=== PATIENT | male | born 1965 | race Caucasian/White ===

== ENCOUNTER 2017-03-14 23:39 | Emergency (ER) | payer MEDICARE ==
[2017-03-15] MEDS ORDERED: Amoxicillin/Potassium Clav 875 MG TAB ONE (00:18)
== END 2017-03-15 00:22 | disposition home or self-care (01) ==
LOC: SCSER 23:39
DX: S01.511A Laceration without foreign body of lip, initial encounter (principal); I10 Essential (primary) hypertension; F43.10 Post-traumatic stress disorder, unspecified; W54.0XXA Bitten by dog, initial encounter
CPT/HCPCS: 12011

== ENCOUNTER 2017-08-15 06:49 | Day surgery (SDC) | payer MEDICARE ==
[2017-08-14 10:36] VITALS: BMI 38.3
[2017-08-15 07:48] VITALS: BP 127/94; TEMP 98.6
--- NOTE | 2017-08-15 10:26 | RAD ---
LUMBAR MYELOGRAM: THORACIC MYELOGRAM: HISTORY: Lumbar stenosis. Degenerative disk disease. Radiculopathy. COMPARISON: None. EXPOSURE: 1.3 minutes 1256.4 mGy per m2 FINDINGS: Initial floor grinder thoracic and lumbar spine radiographs demonstrate a dorsal column stimulator at the lev el of the distal thoracic spine. There is cervical fusion hardware in the lower cervical spine, at t he C5, C6, and C7 levels. Vertebral body heights are maintained. No fracture. Osteophyte formation is noted. There is lumbar fusion change at L5-S1 with anterior and posterior fusion hardware. Successful lumbar puncture for intrathecal contrast administration. A total of 8 mL of Isovue-M 200 was administered intrathecally. The patient tolerated the procedure well. No major post procedure c omplications. IMPRESSION: Successful lumbar puncture for intrathecal contrast administration. Please refer to post myelogram C T for further details. POS: [facility]
--- NOTE | 2017-08-15 11:20 | CT ---
POST MYELOGRAM THORACIC SPINE CT: HISTORY: Degenerative disk disease. Stenosis. COMPARISON: None. TECHNIQUE: Thoracic spine CT is performed after myelogram. Sagittal and coronal reformatted images are submitte d for interpretation. FINDINGS: There are linear opacities and consolidation involving the left lower lobe with elevation of the left hemidiaphragm. Left lower lobe atelectasis is favored. Continue surveillance is recommended. No s ignificant pleural fluid. Limited evaluation of the mediastinum. No mass, lymphadenopathy, or hematoma. Heart size is within normal limits. No pericardial effusion. Visualized aorta has a normal caliber. No periaortic fat s tranding. Hypodensities in the left and right renal cortex are compatible with bilateral cortical cysts. No ev idence of obstructive uropathy. There is a dorsal column stimulator terminating at the T7-T8 disk space. Associated metallic suscept ibility artifact. Limited evaluation of the distal cervical spine and upper thoracic spine due to decreased contrast. T1-T2: No high-grade central canal stenosis. T2-T3: No high-grade central canal stenosis. T3-T4: No high-grade central canal stenosis. There is mild stenosis secondary to a right-sided oste ophyte. There is mild deformity of the right cord. T4-T5: No high-grade central canal stenosis. T5-T6: No high-grade central canal stenosis. Minimal left and right paracentral osteophyte complexe s without significant stenosis. T6-T7: No significant central canal stenosis or foraminal narrowing. T7-T8, T8-T9, T9-T10 are limited in evaluation due to beam-attenuation artifact. There may be mild s tenosis at T9-T10. T10-T11, T11-T12: No significant central canal stenosis. IMPRESSION: Degenerative changes of the thoracic spine as above. No high-grade central canal stenosis. No high- grade foraminal narrowing. POS: [facility]
--- NOTE | 2017-08-15 11:32 | CT ---
POST MYELOGRAM LUMBAR SPINE CT: HISTORY: Lumbar radiculopathy. Spinal stenosis. COMPARISON: 11/03/2009 TECHNIQUE: Post myelogram lumbar spine CT is performed in the axial plane. Reformatted images are submitted for interpretation. FINDINGS: No retroperitoneal mass, lymphadenopathy, or hematoma. Bilateral renal cortical cysts are noted. No evidence of obstructive uropathy. The visualized alimentary canal is unremarkable. Lumbar spine vertebral body height is maintained. No fracture. There is 6.5 mm of retrolisthesis of L2 upon L3. There are anterior and posterior fusion changes at L5-S1. There is a laminectomy defec t at the L2-L3 disk space level. The conus medullaris terminates at the superior aspect of L1. T12-L1: No significant central canal stenosis or foraminal narrowing. L1-L2: Generalized disk bulge, ligamentum flavum thickening, and facet hypertrophy result in mild to moderate bilateral foraminal narrowing. L2-L3: Moderate loss of disk space height. Posterior decompressive laminectomy defect. There appea rs to be some abnormal soft tissue signal intensity in the left subarticular zone. There is some mas s effect without complete obscuration of the traversing left L3 never root. The right subarticular z one is unremarkable. Overall mild central canal stenosis. Moderate right and severe left foraminal narrowing. L3-L4: Mild loss of disk space height. Generalized disk bulge, ligamentum flavum thickening, and fa cet hypertrophy do not cause any significant central canal stenosis. Moderate bilateral foraminal na rrowing. L4-L5: Moderate loss of disk space height. Generalized disk bulge, ligamentum flavum thickening, an d facet hypertrophy result in mild central canal stenosis. There is mild narrowing of the left subar ticular zone. Disk material abuts but does not obscure the traversing left L5 nerve root. Moderate bilateral foraminal narrowing. L5-S1: There is post surgical change. No high grade central canal stenosis. Minimal osteophyte for mation. Mild to moderate bilateral foraminal narrowing. IMPRESSION: Degenerative changes of the lumbar spine, as above. There is narrowing of the left subarticular zone at L4-L5 and at L2-L3, as described above. POS: [facility]
[2017-08-15] MEDS ORDERED: Iopamidol-M 300 61% 15 ML VIAL ONE (15:03)
== END 2017-08-15 09:50 | disposition home or self-care (01) ==
LOC: RAD 06:49
PROVIDERS: ATTEND Nurse Practitioner Family
PROC: B00B1ZZ Plain Radiography of Spinal Cord using Low Osmolar Contrast (ICD-10-PCS; principal; 2017-08-15)
DX: M48.061 Spinal stenosis, lumbar region without neurogenic claudication (principal); M51.16 Intervertebral disc disorders with radiculopathy, lumbar region; G43.909 Migraine, unspecified, not intractable, without status migrainosus; J32.9 Chronic sinusitis, unspecified; J45.909 Unspecified asthma, uncomplicated; K21.9 Gastro-esophageal reflux disease without esophagitis; Z79.891 Long term (current) use of opiate analgesic; Z79.899 Other long term (current) drug therapy; Z88.5 Allergy status to narcotic agent; Z88.8 Allergy status to other drugs, medicaments and biological substances; Z98.1 Arthrodesis status; Z98.890 Other specified postprocedural states
CPT/HCPCS: 62305; 72129; 72132

== ENCOUNTER 2017-10-23 08:34 | Outpatient (CLI) | payer MEDICARE, OTHER | END 2017-10-23 08:35 | disposition home or self-care (01) | LOC: BICRAD 08:34 | PROVIDERS: ATTEND Anesthesiology Pain Medicine | DX: M43.16 Spondylolisthesis, lumbar region (principal); M47.896 Other spondylosis, lumbar region; M48.061 Spinal stenosis, lumbar region without neurogenic claudication; M99.83 Other biomechanical lesions of lumbar region | CPT/HCPCS: 72100 ==

== ENCOUNTER 2018-03-17 18:22 | Emergency (ER) | payer MEDICARE ==
[2018-03-17 18:44] LABS: #Basophils 0.2 thou/uL (0.0-0.2); #Eosinphils 0.3 thou/uL (0.0-0.7); #Lymphocytes 5.2 thou/uL (1.20-3.40); #Neutrophils 8.9 thou/uL (1.40-6.50); %Basophils 1.2 % (0.0-1.0); %Eosinophils 1.6 % (0.0-10.0); %Lymphocytes 33.3 % (21.0-51.0); %Monocytes 6.5 % (0.0-10.0); %Neutrophils 57.4 % (42.0-75.0); Hemoglobin 15.6 g/dL (14.0-18.0); Mean Corpuscular HGB CONC 34.8 g/dL (32.0-36.0); Mean Corpuscular Volume 86.4 fL (78.0-98.0); Mean Platelet Volume 7.7 fL (7.4-10.4); Platelet Count 275 thou/uL (130-400); RBC Distribution Width 11.4 % (11.5-14.5); Red Blood Cell (RBC) Count 5.18 mill/uL (4.70-6.10); White Blood Cell (WBC) Count 15.6 thou/uL (4.8-10.8)
[2018-03-17 18:48] LABS: PTT 27.3 SEC (22.9-36.1); Prothrombin Time 13.2 SEC (12.0-14.7)
[2018-03-17 18:58] LABS: ALT (SGPT) 22 U/L (8-55); AST (SGOT) 24 U/L (5-34); Albumin 4.7 g/dL (3.5-5.0); Alkaline Phosphatase 68 U/L (40-150); Anion Gap 19 mmol/L (10-20); BUN (Urea Nitrogen) 11 mg/dL (8.4-25.7); Bilirubin, Total 0.5 mg/dL (0.2-1.2); CK (CPK) 208 U/L (30-200); Calc. Creatinine Clearance 0 mL/min (70-130); Calcium 9.8 mg/dL (7.8-10.44); Carbon Dioxide 23 mmol/L (22-29); Chloride 102 mmol/L (98-107); Estimated GFR-MDRD 84; Globulin 3.1 g/dL (2.4-3.5); Glucose 107 mg/dL (70-105); Protein, Total 7.8 g/dL (6.0-8.3); Sodium 140 mmol/L (136-145)
[2018-03-17 18:59] LABS: CKMB 3.7 ng/mL (0-6.6); Troponin I Less than 0.010 ng/mL (< 0.028)
[2018-03-17] MEDS ORDERED: Ondansetron PF 4 MG/2 ML Vial ONE (19:04)
[2018-03-17] MEDS ORDERED: Morphine 4 MG/ML VIAL ONE ×2 (19:04→19:37)
--- NOTE | 2018-03-17 19:18 | RAD ---
AP VIEW CHEST: HISTORY: Altered mental status. Loss of consciousness. Bruising. Flank pain. COMPARISON: Not available. FINDINGS: A supine semiupright radiograph of the chest demonstrates an elevated left hemidiaphragm. This is co ncerning for left hemidiaphragm paralysis. The patient has an ACDF plate and screws in place. There is suboptimal inspiratory effort. A moderate degree of pulmonary vascular congestion is seen. No evidence of effusions or pneumonia seen. IMPRESSION: Elevated left hemidiaphragm with suboptimal inspiratory effort. POS: [facility]
== END 2018-03-17 20:32 | disposition home or self-care (01) ==
LOC: SCSER 18:22
DX: R55 Syncope and collapse (principal); S30.0XXA Contusion of lower back and pelvis, initial encounter; I10 Essential (primary) hypertension; F43.10 Post-traumatic stress disorder, unspecified; Z79.899 Other long term (current) drug therapy; W22.8XXA Striking against or struck by other objects, initial encounter
CPT/HCPCS: 36416; 71045; 80053; 82550; 82553; 84484; 85025; 85610; 85730; 93005; 94760; 96361; 96374; 96375; J2270; J2405